=== PATIENT | female | born 1995 | race Caucasian/White ===

== ENCOUNTER 2018-11-10 00:40 | Outpatient (CLI) | payer OTHER, BC, SELFPAY ==
--- NOTE | 2018-11-10 09:30 | DI.MRI_ITS ---
SYMPTOM/DIAGNOSIS: STRAIN OF LT KNEE S86.912D MRI LEFT KNEE: Routine noncontrast examination was performed. There are no priors for comparison. The anterior cruciate ligament is intact as is the posterior cruciate ligament. The medial and lateral collateral ligaments are unremarkable. The extensor mechanism is intact as are the medial and lateral retinaculum and popliteus tendon. There is no evidence of a meniscal tear. The articular cartilage is well maintained. There is a small amount of fluid in the joint space. No significant popliteal cyst is seen. No soft tissue mass or focal fluid collection is appreciated. There is hyperintense signal seen on the T2 weighted images in the lateral femoral condyle suspicious for a bone bruise. No fracture is identified. IMPRESSION: 1. Marrow edema is seen in the lateral femoral condyle suspicious for contusion. 2. No evidence of a meniscal sandie ligament tear.
== END 2018-11-10 01:00 ==
PROVIDERS: Visit Provider Physician Assistant
DX: M25.562 Pain in left knee (principal); S86.912D Strain of unspecified muscle(s) and tendon(s) at lower leg level, left leg, subsequent encounter; M25.462 Effusion, left knee; S80.02XD Contusion of left knee, subsequent encounter
CPT/HCPCS: 73721